=== PATIENT | female | born 1990 | race African-American/Black ===

== ENCOUNTER 2016-06-05 15:57 | Emergency (ER) | payer SELFPAY ==
--- NOTE | 2016-06-05 16:17 | ER Document Report ---
ED Medical Screen (RME) - General Stated Complaint: DIFFICULTY BREATHING Time seen by provider: 16:16 Mode of Arrival: Ambulatory Information source: Patient Notes: 26-year-old female presents to ED for shortness of breath wheezing started today denies fever states she has been coughing. Patient has a history of asthma. Patient has inspiratory and expiratory wheezes at this time. I have greeted and performed a rapid initial assessment of this patient. A comprehensive ED assessment and evaluation of the patient, analysis of test results and completion of medical decision making process will be conducted by an additional ED providers. - Related Data Allergies/Adverse Reactions: No Known Allergies Allergy (Unverified 06/05/16 16:16) Physical Exam - Vital signs Vitals: Temp Pulse Resp BP Pulse Ox 98.4 F 100 22 H 114/64 98 06/05/16 16:01 06/05/16 16:01 06/05/16 16:01 06/05/16 16:01 06/05/16 16:01 Course - Vital Signs Vital signs: Temp Pulse Resp BP Pulse Ox 98.4 F 100 22 H 114/64 98 06/05/16 16:01 06/05/16 16:01 06/05/16 16:01 06/05/16 16:01 06/05/16 16:01
[2016-06-05] MEDS ORDERED: PREDNISONE 20 MG TABLET PO ONE (16:18)
[2016-06-05] MEDS ORDERED: IPRATROPIUM/ALBUTEROL 0.5-2.5 MG/3 ML AMPUL NEB ONE (16:18)
[2016-06-05] MEDS ORDERED: ALBUTEROL SULFATE 0.083% NEB 2.5 MG/3 ML AMPUL NEB SCH (16:30)
--- NOTE | 2016-06-05 18:11 | ER Document Report ---
ED General - General Chief Complaint: Breathing Difficulty Stated Complaint: DIFFICULTY BREATHING Time seen by provider: 17:50 Mode of Arrival: Ambulatory Information source: Patient Notes: 26-year-old female with 1 day history of nonproductive cough and wheezing shortness of breath several what she's had in past with asthma. She reports she has no local doctor doesn't currently have any medicines take for asthma. She reports feeling better after oral steroids and nebulizer treatment emergency Department says her breathing is now back to normal. She reports she' s been in her normal state of health otherwise recently. Physical Exam: General: Alert, appears well. HEENT: Normocephalic. Atraumatic. PERRLA. Extraocular movements intact. Oropharynx clear. Neck: Supple. Non-tender. Respiratory: No respiratory distress. Clear and equal breath sounds bilaterally. Cardiovascular: Regular rate and rhythm. Abdominal: Normal Inspection. Soft, non-tender. No distension. Normal Bowel Sounds. Back: Non-tender. No deformity or step off. All extremities warm no gross deformities no edema good range of motion without discomfort l Neurological: Speech clear mentation normal Psychological: Normal affect. Normal Mood. Skin: Warm. Dry. Normal color. TRAVEL OUTSIDE OF THE [place] IN LAST 30 DAYS: No - Related Data Allergies/Adverse Reactions: No Known Allergies Allergy (Unverified 06/05/16 16:16) Past Medical History - General Information source: Patient - Social History Smoking Status: Never Smoker Chew tobacco use (# tins/day): No Frequency of alcohol use: None Drug Abuse: None Family History: Reviewed & Not Pertinent Patient has suicidal ideation: No Patient has homicidal ideation: No Pulmonary Medical History: Reports: Hx Asthma Renal/ Medical History: Denies: Hx Peritoneal Dialysis Review of Systems - Review of Systems Constitutional: denies: Chills, Fever EENT: denies: Ear pain, Throat pain Cardiovascular: denies: Chest pain, Syncope Respiratory: Cough, Short of breath Gastrointestinal: denies: Abdominal pain, Diarrhea, Nausea, Vomiting Genitourinary: denies: Burning, Dysuria Female Genitourinary: denies: , Vaginal discharge, Vaginal bleeding Musculoskeletal: denies: Back pain Skin: denies: Rash Neurological/Psychological: denies: Weakness, Numbness Physical Exam - Vital signs Vitals: Temp Pulse Resp BP Pulse Ox 98.4 F 100 22 H 114/64 98 03/16/17 16:01 06/05/16 16:01 06/05/16 16:01 06/05/16 16:01 06/05/16 16:01 Course - Re-evaluation Re-evalutation: 06/05/16 18:09 Examination performed after treatment through triage for asthma and she is now clear. Discharge with Medrol Dosepak and prescription for albuterol inhaler and outpatient referral - Vital Signs Vital signs: Temp Pulse Resp BP Pulse Ox 98.4 F 100 22 H 114/64 98 06/05/16 16:01 06/05/16 16:01 06/05/16 16:01 06/05/16 16:01 06/05/16 16:01 - Diagnostic Test Radiology reviewed: Image reviewed, Reports reviewed Discharge - Discharge Clinical Impression: Acute asthma exacerbation Qualifiers: Asthma severity: unspecified severity Qualified Code(s): J45.901 - Unspecified asthma with (acute) exacerbation Condition: Stable Disposition: HOME, SELF-CARE Additional Instructions: Asthma You have been diagnosed as having asthma. This is a condition where there is episodic tightness in the bronchial tubes. Allergies, infections, and polluted or cold air may be contributing factors. Emergency treatment of a severe asthma attack may include adrenaline shots , or bronchodilator aerosol. You may feel lightheaded, have a decreased exercise tolerance and a rapid pulse for an hour or two. Rest and get plenty of fluids. Home treatment of asthma requires bronchodilator drugs. These can be administered by injection, inhalation, or by mouth. Antibiotics and corticosteroids may be required for some patients. You should avoid chemical fumes, dusts, pollens, and exercising in very cold or dry air. If you smoke, stop!! If you develop a fever, increased wheezing, chest pain, or severe shortness of breath, you should contact the doctor immediately Prescriptions: Albuterol Sulfate [Proair HFA Inhalation Aerosol 8.5 gm MDI] 2 puff IH Q4H PRN # 1 mdi PRN Reason: Methylprednisolone [Medrol Dosepack (4 mg/Tab) 21 Tab/Dosepak] 4 mg PO ASDIR PRN #21 [email or web address] PRN Reason: Referrals: [facility] [Provider Group] - Follow up in 1 week
[2016-06-05 19:05] VITALS: BP 120/55
== END 2016-06-05 19:05 | disposition home or self-care (01) ==
LOC: ER 15:57
DX: J45.901 Unspecified asthma with (acute) exacerbation (principal)
CPT/HCPCS: 94640 ×2; 99284; 71020; J7512; J7620